=== PATIENT | female | born 1960 | race Caucasian/White ===

== ENCOUNTER 2017-02-27 09:06 | Day surgery (SDC) | payer OTHER ==
[~2017-02-27] VITALS: Ht 152.4 cm; Wt 85.5 kg
[2017-02-27 11:01] VITALS: Ht 152.4 cm; Wt 85.5 kg
[2017-02-27] MEDS ORDERED: OMEP20CA16 PO (11:06)
[2017-02-27] MEDS ORDERED: LEVO88TA42 PO (11:06)
[2017-02-27] MEDS ORDERED: PROPOFOL 20 ML ONE (11:21)
[2017-02-27] MEDS ORDERED: FENTAnyl 50 MCG/ML VIAL ONE (11:21)
[2017-02-27] MEDS ORDERED: MIDAZOLAM 1 MG/ML 2 ML INJ ONE (11:21)
[2017-02-27 11:27] VITALS: BP 146/70; RESP 18
--- NOTE | 2017-02-27 11:56 | GILP ---
DATE OF PROCEDURE: NAME OF PROCEDURE: Colonoscopy. SURGEON: Syed Laird MD PREOPERATIVE DIAGNOSIS: Screening colonoscopy. POSTOPERATIVE DIAGNOSES: 1. Colonoscopy all the way to the cecum. 2. Internal hemorrhoids. 3. No colon neoplasm was identified. INDICATION FOR THE PROCEDURE: Ms. Sylvie Marcos is a 56-year-old female patient who was schedu led for screening colonoscopy. The procedure and possible complications are well explained to the patient. The patient understood and consented to the procedure. DESCRIPTION OF PROCEDURE: Under the influence of anesthesia, the colonoscope was carefully introduc ed in the rectum and under direct vision, it was advanced all the way to the cecum. FINDINGS: The patient had internal hemorrhoids. No colon neoplasm was identified. She tolerated the procedure very well and there was no complication from the procedure. At the end of the procedure, she was awake with stable vital signs, and she was discharged home to the care of her family. IMPRESSION: 1. Colonoscopy all the way to the cecum. 2. Internal hemorrhoids. 3. No colon neoplasm was identified. PLAN: Next screening colonoscopy in 10 years. Dictated By: SYED JASSO/YUSUF Conf#: [id number] DID#: [id number]
[2017-02-27 12:07] VITALS: BP 121/56; PULSE 62; RESP 12
== END 2017-02-27 13:03 | disposition home or self-care (01) ==
LOC: GIL 09:06
PROVIDERS: ATTEND Internal Medicine Gastroenterology
DX: Z12.11 Encounter for screening for malignant neoplasm of colon (principal); K64.8 Other hemorrhoids
CPT/HCPCS: J2250; J3010